=== PATIENT | male | born 1945 | race Caucasian/White ===

== ENCOUNTER 2016-10-09 21:20 | Emergency (ER) | payer MEDICARE, BC ==
[2016-10-09 22:05] LABS: BASOPHILS 0.2 % (0.0-2.0); EOSINOPHILS 1.2 % (0-7); HEMOGLOBIN 13.6 g/dL (13.5-17.5); IMMATURE GRANULOCYTES 0.3 % (0-5); LYMPHOCYTES 4.4 % (15-50); MCH 27.8 pg (26.0-34.0); MCHC 31.6 g/dL (31.0-37.0); MCV 87.9 fL (80.0-100.0); MEAN PLATELET VOLUME 9.8 fL (7.4-10.4); MONOCYTES 11.2 % (2-11); NEUTROPHILS 82.7 % (40-80); PLATELET COUNT 187 10x3/uL (130-400); RBC 4.89 10x6/uL (4.20-6.10); RDW 12.7 % (11.5-14.5); WBC 9.8 10x3/uL (4.8-10.8)
[2016-10-09 22:18] LABS: ALBUMIN 3.7 g/dL (3.4-5.0); ALKALINE PHOSPHATASE 48 U/L (46-116); ALT (SGPT) 19 U/L (10-68); BILIRUBIN - TOTAL 0.26 mg/dL (0.2-1.3); CALC OSMOLALITY 277 mosm/kg (275-300); CALCIUM 9.3 mg/dL (8.5-10.1); CARBON DIOXIDE 29.3 mmol/L (21.0-32.0); CHLORIDE - SERUM 102 mmol/L (98-107); CREATININE - SERUM 0.9 mg/dL (0.6-1.3); GLUCOSE 122 mg/dL (74-106); POTASSIUM - SERUM 4.3 mmol/L (3.5-5.1); PROTEIN - SERUM 7.2 g/dL (6.4-8.2); SODIUM 139 mmol/L (136-145); UREA NITROGEN 9 mg/dL (7-18); eGFR NON AFRICAN AMERICAN 88 mL/min (90-120)
[2016-10-10 01:04] LABS: APPEARANCE CLEAR (CLEAR); BILIRUBIN NEGATIVE (NEGATIVE); COLOR YELLOW (YELLOW); GLUCOSE NEGATIVE (NEGATIVE); KETONE NEGATIVE (NEGATIVE); LEUKOCYTE ESTERASE NEGATIVE (NEGATIVE); NITRITE NEGATIVE (NEGATIVE); PROTEIN TRACE mg/dL (NEGATIVE); SPECIFIC GRAVITY 1.005 (1.005-1.020); UROBILINOGEN NORMAL (NORMAL)
[2016-10-10 01:10] LABS: BACTERIA FEW /hpf (NONE SEEN); EPITHELIAL CELLS RARE /hpf (0-5); HYALINE CAST RARE /lpf (NONE SEEN); WHITE CELLS - URINE OCC /hpf (0-5)
== END 2016-10-10 02:18 | disposition home or self-care (01) ==
LOC: D.ER 21:20
PROVIDERS: Family Medicine
DX: B34.9 Viral infection, unspecified (principal); E11.9 Type 2 diabetes mellitus without complications; I10 Essential (primary) hypertension; F17.200 Nicotine dependence, unspecified, uncomplicated

== ENCOUNTER 2017-03-27 06:02 | Day surgery (SDC) | payer MEDICARE, BC ==
[~2017-03-27] VITALS: Ht 177.8 cm; Wt 94.1 kg
[2017-03-27 06:49] LABS: HEMATOCRIT 48.1 % (42.0-54.0); HEMOGLOBIN 15.2 g/dL (13.5-17.5); MCH 28.4 pg (26.0-34.0); MCHC 31.6 g/dL (31.0-37.0); MCV 89.7 fL (80.0-100.0); MEAN PLATELET VOLUME 10.2 fL (7.4-10.4); RBC 5.36 10x6/uL (4.20-6.10); RDW 13.9 % (11.5-14.5)
[2017-03-27 07:03] LABS: CALC OSMOLALITY 284 mosm/kg (275-300); CALCIUM 9.5 mg/dL (8.5-10.1); CARBON DIOXIDE 32.4 mmol/L (21.0-32.0); CHLORIDE - SERUM 104 mmol/L (98-107); GLUCOSE 101 mg/dL (74-106); POTASSIUM - SERUM 4.1 mmol/L (3.5-5.1); SODIUM 143 mmol/L (136-145); UREA NITROGEN 13 mg/dL (7-18); eGFR NON AFRICAN AMERICAN 78 mL/min (90-120)
[2017-03-27] MEDS ORDERED: ZESTRIL40 MG PO (07:05)
[2017-03-27] MEDS ORDERED: CARDURA1 MG PO (07:06)
[2017-03-27] MEDS ORDERED: ZOFRAN4 MG PO (07:06)
[2017-03-27] MEDS ORDERED: COREG12.5 MG PO (07:06)
[2017-03-27] MEDS ORDERED: ZOCOR80 MG PO (07:07)
[2017-03-27] MEDS ORDERED: GLUCOPHAGE1000 MG PO (07:07)
[2017-03-27] MEDS ORDERED: HYDROCODON-ACE1 EAC9 PO (07:08)
[2017-03-27] MEDS ORDERED: BAYER CHEWABLE81 MG PO (07:08)
[2017-03-27] MEDS ORDERED: NIASPAN1000 MG PO (07:08)
[2017-03-27 07:14] VITALS: BP 138/78; Ht 177.8 cm; Wt 94.1 kg
--- NOTE | 2017-03-28 07:48 | OP ---
PATIENT NAME: DEZ CARL MEDICAL RECORD: [id number] :41 LOCATION:[facility] ADMISSION DATE: SURGEON: FERNANDO HARDEN DO DATE OF OPERATION: 03/27/2017 PROCEDURE: Colonoscopy with polypectomy. INDICATIONS FOR PROCEDURE: Screening colonoscopy and chronic constipation, which the patient states has resolved. SCOPE: Olympus video pediatric colonoscope. MEDICATIONS: Propofol 1200mg IV per anesthesia. WITHDRAWAL TIME: 36 minutes. FINDINGS: Informed consent was given. The patient was made comfortable with the above medication. After reaching an adequate level of sedation by slow IV push, the patient was placed on his left side. A digital rectal examination was performed and revealed some tags consistent with the past external hemorrhoids. The prostate was slightly enlarged, but they were no nodules palpation. The scope was then inserted through the rectum under direct visualization and advanced to the cecum with visualization of the appendiceal orifice and ileocecal valve. The scope was slowly withdrawn and the mucosa was carefully examined. Prep quality was good on the left side of the colon, but poor on the right side. Irrigation and aspiration was performed, but all of the stool could not be removed, making small polyps possibly be missed. In the ascending colon, there was a single polyp which measured approximately 1 cm in size. It was benign appearing and flat. The polyp was lifted using normal saline and a hot snare was placed around the polyp to remove in 1 piece. It was completely retrieved. A single edge was fulgurated using the tip of the snare. For hemostasis and to close the defect, a single endoclip was placed successfully over the site. In the transverse colon, there were 3 separate polyps which were benign-appearing and sessile. They ranged in size from 4-6 mm in diameter. They were all removed using a hot snare in 1 piece and completely retrieved. In the descending colon, there was a single polyp which was small and benign-appearing. It measured approximately 3 mm in size. It was removed using hot forceps in 1 piece and completely retrieved. Retroflexion was performed in the rectum with visualization of small nonbleeding internal hemorrhoids. The scope was then withdrawn from the patient. The patient tolerated the procedure well and there were no complications. IMPRESSION: 1. Multiple polyps as described above, located in the ascending colon, transverse colon, and descending colon. These were removed using various methods including EMR, hot snare, and hot forceps. 2. Small nonbleeding internal hemorrhoids. PLAN AND RECOMMENDATIONS: 1. Discharge home when recovery parameters are met. 2. High fiber diet. 3. Continue current medications. 4. Plan for a repeat colonoscopy in 6 months to 1 year for surveillance of polypectomy sites. OPERATIVE REPORT [id number] DEZ CARL TRANSFABIÁN:[id number] Voice Confirmation ID: [id number] DOCUMENT ID: [id number] FERNANDO HARDEN DO at 0748 CC: [id number] DICTATION DATE: 03/27/17916 [facility]ONE[facility] ROOM TELLER: 03/27/17 1118 [facility] 03/27/17 [facility] [address] [place] [address]
== END 2017-03-27 10:05 | disposition home or self-care (01) ==
LOC: D.OPS 06:02
PROVIDERS: Anesthesiology
DX: Z12.11 Encounter for screening for malignant neoplasm of colon (principal); D12.4 Benign neoplasm of descending colon; D12.3 Benign neoplasm of transverse colon; D12.2 Benign neoplasm of ascending colon; K64.8 Other hemorrhoids; Z01.812 Encounter for preprocedural laboratory examination

== ENCOUNTER 2018-12-08 00:31 | Emergency (ER) | payer MEDICARE, BC ==
[~2018-12-08] VITALS: Ht 177.8 cm; Wt 92.5 kg
[~2018-12-08 00:31] MED LIST: BAYER CHEWABLE81 MG PO; CARDURA1 MG PO; COREG12.5 MG PO; GLUCOPHAGE1000 MG PO; HYDROCODON-ACE1 EAC9 PO; NIASPAN1000 MG PO; ZESTRIL40 MG PO; ZOCOR80 MG PO; ZOFRAN4 MG PO
[2018-12-08 00:36] VITALS: Ht 177.8 cm; Wt 92.5 kg
[2018-12-08] MEDS ORDERED: ERYTHROMYCIN250 M1 PO (00:37)
[2018-12-08] MEDS ORDERED: PREDNISONE (00:37)
[2018-12-08 01:57] LABS: APPEARANCE HAZY (CLEAR); BILIRUBIN NEGATIVE (NEGATIVE); COLOR YELLOW (YELLOW); GLUCOSE NEGATIVE (NEGATIVE); KETONE NEGATIVE (NEGATIVE); NITRITE NEGATIVE (NEGATIVE); PROTEIN NEGATIVE (NEGATIVE); SPECIFIC GRAVITY 1.015 (1.005-1.020); UROBILINOGEN NORMAL (NORMAL)
[2018-12-08 01:58] LABS: BACTERIA NONE SEEN /hpf (NONE SEEN); CALCIUM OXALATE CRYSTALS 0-5 /hpf (NONE SEEN); EPITHELIAL CELLS 0-5 /hpf (0-5); RED CELLS - URINE >50 /hpf (0-5); WHITE CELLS - URINE NSEEN /hpf (0-5)
[2018-12-08 02:35] LABS: BASOPHILS 0.1 % (0-2); EOSINOPHILS 0.1 % (0-7); HEMATOCRIT 43.4 % (42.0-54.0); IMMATURE GRANULOCYTES 0.5 % (0-5); LYMPHOCYTES 9.8 % (15-50); MCH 28.6 pg (26.0-34.0); MCHC 32.3 g/dL (31.0-37.0); MCV 88.6 fL (80.0-100.0); MEAN PLATELET VOLUME 10.4 fL (7.4-10.4); MONOCYTES 13.6 % (2-11); NEUTROPHILS 75.9 % (40-80); PLATELET COUNT 248 10x3/uL (130-400); RDW 12.9 % (11.5-14.5); WBC 13.1 10x3/uL (4.8-10.8)
[2018-12-08 03:05] LABS: ALBUMIN 3.5 g/dL (3.4-5.0); ANION GAP 13.6 mmol/L (8-16); BILIRUBIN - TOTAL 0.31 mg/dL (0.2-1.3); CALCIUM 9.3 mg/dL (8.5-10.1); CREATININE - SERUM 1.2 mg/dL (0.6-1.3); POTASSIUM - SERUM 4.6 mmol/L (3.5-5.1); PROTEIN - SERUM 7.5 g/dL (6.4-8.2)
[2018-12-08 05:47] VITALS: BP 129/72
== END 2018-12-08 05:47 | disposition other institution (70) ==
LOC: D.ER 00:31
PROVIDERS: Family Medicine
DX: R10.9 Unspecified abdominal pain (principal); N13.2 Hydronephrosis with renal and ureteral calculous obstruction; R11.2 Nausea with vomiting, unspecified

== ENCOUNTER 2019-01-03 09:15 | Day surgery (SDC) | payer MEDICARE, BC ==
[2019-01-02 15:42] LABS: HEMATOCRIT 41.4 % (42.0-54.0); HEMOGLOBIN 13.3 g/dL (13.5-17.5); MCH 28.2 pg (26.0-34.0); MCHC 32.1 g/dL (31.0-37.0); MCV 87.7 fL (80.0-100.0); MEAN PLATELET VOLUME 10.5 fL (7.4-10.4); RBC 4.72 10x6/uL (4.20-6.10); RDW 13.6 % (11.5-14.5); WBC 9.8 10x3/uL (4.8-10.8)
[2019-01-02 15:59] LABS: CALC OSMOLALITY 284 mosm/kg (275-300); CALCIUM 9.2 mg/dL (8.5-10.1); CHLORIDE - SERUM 107 mmol/L (98-107); CREATININE - SERUM 0.7 mg/dL (0.6-1.3); GLUCOSE 90 mg/dL (74-106); POTASSIUM - SERUM 4.5 mmol/L (3.5-5.1); SODIUM 143 mmol/L (136-145); UREA NITROGEN 13 mg/dL (7-18); eGFR NON AFRICAN AMERICAN > 90 mL/min (90-120)
[~2019-01-03] VITALS: Ht 177.8 cm; Wt 87.1 kg
[~2019-01-03 09:15] MED LIST changes: +AMBIEN10 MG PO; +CLARITIN 10 MG10 MG PO; +ERYTHROMYCIN250 M1 PO; +FLOMAX0.4 MG PO; +GABAPENTIN100 MG PO; +NITROSTAT0.4 MG SL; +PREDNISONE
[2019-01-03 11:15] VITALS: BP 129/84; Ht 177.8 cm; Wt 87.1 kg
--- NOTE | 2019-01-03 13:29 | NUR ---
PATIENT IV RIGHT LOWER FORARM INFILTRATED WHEN TAPE WAS REMOVED SMALL SKIN TEAR
--- NOTE | 2019-01-03 15:05 | NUR ---
REC'D FROM RR. FAMILY AT BEDSIDE. ICE WATER AND FL TRAY BROUGHT TO PT. VOIDED IN URINAL. BLOOD TINGED URINE NOTED. WARM BLANKET PLACED ON PT.
--- NOTE | 2019-01-03 15:35 | NUR ---
SITTING WITH HOB ELEVATED EATING FL DIET. NO C/O VOICED. FAMILY AT BEDSIDE.
--- NOTE | 2019-01-03 15:55 | NUR ---
IV DC'D WITH CATHETER INTACT.
--- NOTE | 2019-01-03 16:00 | NUR ---
WRITTEN AND VERBAL DC INST. GIVEN TO PT. ALONG WITH FU KUB IN 2 WEEKS. VERBALIZED UNDERSTANDING.
--- NOTE | 2019-01-03 16:01 | OP ---
PATIENT NAME: DEZ CARL MEDICAL RECORD: [id number] :43 [facility] ADMISSION DATE: SURGEON: PENELOPE BLACK MD DATE OF OPERATION: 01/03/2019 SURGEON: Penelope Black MD ANESTHESIA: General anesthesia by Eric Nicolas MD DIAGNOSIS: Left renal stone, 4 mm; left distal ureteral stone, 6 mm. PROCEDURE: Left renal ESWL times 3000 shocks, left distal ureteral ESWL times 2000 shocks. FINDINGS: Radiodense left renal stones about 4 mm, radiodense left distal ureteral stone 6 mm. BLOOD LOSS: None. CLINICAL HISTORY: This is a 73-year-old male, who was referred from the Emergency Room with bilateral kidney stones. He is symptomatic from a left ureteral stone, 6 mm in size as seen on CT scan. There is also a nonobstructive left renal stone and 2 larger nonobstructive right renal stones. The CT scan also suggests a right middle lobe pneumonia and he was coughing at the time. I was away in [place] at the time that he came to the Emergency Room and he was transferred to [facility] in [place]. There they inserted a left ureteral stent. They did not make any attempts to remove the ureteral stone. He comes today to have the stones treated with ESWL on the left side. HE IS ALLERGIC TO ADENOSINE AND MORPHINE. He was given Ancef avionics engineer to the OR. DESCRIPTION OF PROCEDURE: The patient was placed on the treatment table. Initially, we visualized the left-sided stones. The renal and ureteral stones were seen. The patient was then given induction of general anesthesia in supine position. The renal stone on the left side was targeted in 2 planes and 3000 shocks were given to the renal stone. The stone was rather hard and was seen to break up into 3 or 4 smaller pieces after the 3000 shocks. We then turned the patient into the prone position. We had to turn him because the distal ureter where the ureteral stone is located is protected by the sacrum. Once in the prone position, again the stone in the ureter was targeted in 2 planes. After 2000 shocks, the stone had basically vanished as it had completely been fragmented. We stopped at this point. The patient will be seen in followup in 2 weeks' time with a KUB. If the stones in the left side had completely passed, then we will remove the left ureteral stent. At a later date, we will have to arrange for cystoscopy, right ureteral stent insertion, right ESWL. TRANSINT:[id number] Voice Confirmation ID: [id number] DOCUMENT ID: [id number] OPERATIVE REPORT [id number] DEZ CARL ROBERT S MD at 1601 CC: [id number] DICTATION DATE: 01/03/19 142 MANAGER ARCHITECTURAL: 01/03/[address] [facility] [address] [place] [id number]
--- NOTE | 2019-01-03 16:10 | NUR ---
DC'D HOME WITH FAMILY VIA PRIVATE VEHICLE. TAKEN TO VEHICLE VIA WC. STABLE AT TIME OF DC.
== END 2019-01-03 16:10 | disposition home or self-care (01) ==
LOC: D.OPS 09:15 → D.PAN 10:45 → D.OPS 11:15 → D.PAN 11:15 → D.OPS 11:30 → D.PAN 13:00 → D.OPS 16:10
PROVIDERS: Anesthesiology; ATTEND Urology
DX: N20.1 Calculus of ureter (principal); Z01.812 Encounter for preprocedural laboratory examination

== ENCOUNTER → 2019-01-17 10:56 | Outpatient (CLI) | payer MEDICARE, BC ==
[2019-01-03 11:15] VITALS: BMI 27.6
== END | disposition home or self-care (01) ==
LOC: D.RAD 10:56
PROVIDERS: ATTEND Urology
DX: N20.2 Calculus of kidney with calculus of ureter (principal)

== ENCOUNTER → 2019-01-21 19:59 | Outpatient (CLI) | payer MEDICARE, BC ==
[2019-01-03 11:15] VITALS: BMI 27.6
[~2019-01-21 19:59] MED LIST changes: +ALBUTEROL2.5 MG/3 M
[2019-01-25 17:08] LABS: CALCULI - CA OXALATE MONOHYDR 70 % (()); CALCULI - CALCIUM PHOSPHATE 30 % (()); CALCULI - COLOR Tan (()); CALCULI - WEIGHT 345.7 mg (())
== END | disposition home or self-care (01) ==
LOC: D.LABREF 19:59
PROVIDERS: ATTEND Urology
DX: N20.0 Calculus of kidney (principal)

== ENCOUNTER 2019-01-24 08:24 | Day surgery (SDC) | payer MEDICARE, BC ==
[~2019-01-24] VITALS: Ht 177.8 cm; Wt 88.9 kg
[2019-01-24 08:58] LABS: CALC OSMOLALITY 289 mosm/kg (275-300); CALCIUM 9.2 mg/dL (8.5-10.1); CARBON DIOXIDE 28.9 mmol/L (21.0-32.0); CHLORIDE - SERUM 108 mmol/L (98-107); CREATININE - SERUM 0.9 mg/dL (0.6-1.3); GLUCOSE 99 mg/dL (74-106); HEMATOCRIT 40.6 % (42.0-54.0); MCH 28.1 pg (26.0-34.0); MCV 87.9 fL (80.0-100.0); POTASSIUM - SERUM 4.2 mmol/L (3.5-5.1); RBC 4.62 10x6/uL (4.20-6.10); RDW 13.9 % (11.5-14.5); SODIUM 144 mmol/L (136-145); UREA NITROGEN 20 mg/dL (7-18); WBC 6.9 10x3/uL (4.8-10.8); eGFR NON AFRICAN AMERICAN 87 mL/min (90-120)
[2019-01-24 09:16] VITALS: BP 128/65; Ht 177.8 cm; Wt 88.9 kg
--- NOTE | 2019-01-24 15:59 | NUR ---
1600 ADA FL DIET SERVED.
--- NOTE | 2019-01-24 16:00 | OP ---
PATIENT NAME: DEZ CARL MEDICAL RECORD: [id number] :43 LOCATION:[facility] ADMISSION DATE: SURGEON: LACHO BLACK MD DATE OF OPERATION: 01/24/2019 SURGEON: Lacho Black MD ANESTHESIA: General anesthesia by Dr. Eric Nicolas. DIAGNOSES: 1. Retained left ureteral stent. 2. Right renal stones 7 mm each times 2. PROCEDURES: Cystoscopy, left ureteral stent removal, right ureteral stent insertion 6-Central African x 26 cm with string attached, removal of right renal stone fragments, right extracorporeal shockwave lithotripsy times 3000 shocks to the upper right renal stone. FINDINGS: Two right renal radiodense stones about 7 mm each in size. On cystoscopy, he has a tall bladder neck with some lateral lobe obstruction. In the bladder, no bladder tumors were seen and there were single ureteral orifices bilaterally. Once the right ESWL was underway, the 2 stone fragments dropped out of the lower pole of the renal stone and out into the bladder. These were retrieved using grasping forceps. They will be sent for stone analysis. BLOOD LOSS: Minimal. CLINICAL HISTORY: This is a 73-year-old male, who initially presented with left flank pain while I was away at a conference. He was transferred to [facility] and he had a left ureteral stent inserted. He was then treated with lithotripsy and the left ureteral stone has completely gone on the followup KUB. He comes today to have the left ureteral stent removed as no string was attached to the stent placed at [facility]. Also, he has 2 stones in the right kidney about 7 mm each in size. He is to have these treated with lithotripsy. Most likely, we will have to treat one of the stones with lithotripsy and then at a later date to treat the other stone with lithotripsy as is a 3000 shock limit for renal stones. He was given Ancef trail construction worker to the OR. DESCRIPTION OF PROCEDURE: The patient was given IV sedation. We performed fluoroscopy and we could identify the stones quite clearly. He was then given intubation for general anesthetic. The upper stone, which is in the mid kidney was targeted in 2 planes and 3000 shocks were started to be given to the stone. In the meantime, down in the penile region, we prepped and draped the patient and placed in the lithotomy position. A 21-Central African cystoscope with 30-degree lens was used for visualization. Findings are as outlined above. The old left ureteral stent was identified and grasping forceps were used to entirely remove the stents. The right ureteral orifice was then identified. The open-ended ureteral catheter was inserted into the right ureteral orifice. Through the lumen of the open-ended ureteral catheter, a Sensor wire was placed up into the right renal pelvis. This was all being done while the shock wave treatment was being given to the right mid pole stone. The stone was seen to fragment and in very short time we saw the 2 fragments end up in the bladder. Over the wire, we inserted the 6-Central African x 26 cm ureteral stent. Once the stent was in correct position, the wire was withdrawn entirely. The distal end of the stent was OPERATIVE REPORT [id number] DEZ CARL pushed into the bladder using a pusher. The string from the distal end of the stent is maintained. It hangs out of the urethra. It was tied to itself in a knot and cut shorter. The scope was placed back in and the 2 stone fragments were retrieved using grasping forceps. They will be sent for stone analysis. The bladder was then emptied through the scope sheath and the scope was removed. Once all of the shocks were given to the mid pole stone, the treatment was terminated. We will bring him back in 2 weeks' time with a KUB. If at that time, the mid pole stone has gone entirely, then we will focus our attention on treating the lower pole stone with ESWL. TRANSINT:[id number] Voice Confirmation ID: [id number] DOCUMENT ID: [id number] LACHO BLACK MD at 1600 CC: [id number] DICTATION DATE: 01/24/19 1510 ENVIRONMENTAL HEALTH MANAGER: 01/24/19 1543 [facility] [address] [place] [address]
== END 2019-01-24 17:00 | disposition home or self-care (01) ==
LOC: D.OPS 08:24 → D.PAN 10:30 → D.OPS 10:45
PROVIDERS: Anesthesiology; ATTEND Urology
DX: N20.0 Calculus of kidney (principal); Z86.010 Personal history of colon polyps; Z01.812 Encounter for preprocedural laboratory examination

== ENCOUNTER 2019-02-04 00:52 | Inpatient (IN) | payer MEDICARE, BC ==
[2019-02-04] VITALS (7 sets, daily range): BP systolic 90–134; BP diastolic 53–75; Ht 177.8 cm; Wt 92.5 kg
[~2019-02-04] VITALS: Ht 177.8 cm; Wt 92.5 kg
--- NOTE | ~2019-02-04 | EC ---
PATIENT:DEZ CARL DATE OF SERVICE: 02/04/19 SEX: M MEDICAL RECORD: [id number] DATE OF : 41 LOCATION:D.M2 D.213 AGE OF PATIENT: 73 ADMISSION DATE: 02/04/19 REFERRING PHYSICIAN: INTERPRETING PHYSICIAN: ELIZABETH CRISTOBAL MD ECHOCARDIOGRAM REPORT ECHO CHARGES 4 ECHO COMPLETE Date: 02/05/19 CLINICAL DIAGNOSIS: BACTEREMIA - R/O VEGETATION ECHOCARDIOGRAPHIC MEASUREMENTS (adult normal given) AC root (d.<3.7cm) 3.2 cm LV Septum d (<1.2 cm> 1.1 cm Valve Excursion 1.5 cm LV Septum (systole) 1.9 cm Left Atria (s.<4.0cm> 3.8 cm LVPW d(<1.2cm) 1.2 cm RV (d.<2.3cm) 2.5 cm LVPW (sytole) 1.6 cm LV diastole(<5.6CM) 6.4 cm MV E-F(>70mm/sec) cm LV systole 4.5 cm LVOT Diameter 1.6 cm MV exc.(>10mm) cm Est.ejection fraction (50-75%) % DOPPLER: LVIT cm/sec A 100 cm/sec E 67.0 cm/sec LA cm/sec RVSP 19.0 mmHg LVOT 102 cm/sec AOP1/2T m/s Asc. Ao 160 cm/sec RVOT 73.0 cm/sec RA cm/sec PA 93.0 cm/sec AV Gradient Peak 10.3 mmHg AV Mean 6.5 mmHg AV Area 1.1 cm MV Gradient Peak 4.8 mmHg MV Mean 1.7 mmHg MV Area cm COMMENTS: [place]: Marisabel MONTALVOOE Refrigeration Service Technician: 1 Dr. Cristobal TAPE# PACS Pericardial Effusion N DATE OF SERVICE: 02/06/2019 ECHOCARDIOGRAM DATE OF SERVICE: 02/06/2019 FINDINGS: 1. Left ventricular chamber size is dilated. Left ventricular systolic function is lower limits of normal at 45% to 50%. 2. Left atrium, right atrium, and right ventricular chamber sizes are within ECHOCARDIOGRAM REPORT [id number] DEZ CARL normal limits. 3. Valvular structures have normal structure and motion. 4. Doppler interrogation reveals moderate aortic insufficiency, mild mitral regurgitation, mild tricuspid regurgitation, no other valvular insufficiency or stenosis. 5. No evidence of pericardial effusion or left ventricular thrombus. 6. No evidence of vegetative endocarditis. TRANSINT:[id number] Voice Confirmation ID: [id number] DOCUMENT ID: [id number] ELIZABETH CRISTOBAL MD CC: [id number] DICTATION DATE: 02/06/19 105 LOCAL TRUCK DRIVER: 02/06/19 1132 ADM IN [facility] [address] [place] [address]
--- NOTE | 2019-02-04 01:24 | NUR ---
TRAUMA BAND: [id number] PLACED BY EMS
--- NOTE | 2019-02-04 01:31 | NUR ---
PT LEFT ED VIA STRETCHER FOR CT.
[2019-02-04 01:34] LABS: BASOPHILS 0.1 % (0-2); EOSINOPHILS 0 % (0-7); HEMATOCRIT 37.8 % (42.0-54.0); HEMOGLOBIN 12.5 g/dL (13.5-17.5); IMMATURE GRANULOCYTES 0.2 % (0-5); LYMPHOCYTES 6.5 % (15-50); MCH 28.4 pg (26.0-34.0); MCHC 33.1 g/dL (31.0-37.0); MCV 85.9 fL (80.0-100.0); MEAN PLATELET VOLUME 9.8 fL (7.4-10.4); MONOCYTES 7.8 % (2-11); NEUTROPHILS 85.4 % (40-80); RDW 13.9 % (11.5-14.5); WBC 12.8 10x3/uL (4.8-10.8)
[2019-02-04 01:35] LABS: PLATELET COUNT 150 10x3/uL (130-400)
[2019-02-04 01:45] LABS: ALBUMIN 2.4 g/dL (3.4-5.0); ALKALINE PHOSPHATASE 51 U/L (46-116); ALT (SGPT) 42 U/L (10-68); BILIRUBIN - TOTAL 0.49 mg/dL (0.2-1.3); CALC OSMOLALITY 289 mosm/kg (275-300); CALCIUM 8.8 mg/dL (8.5-10.1); CARBON DIOXIDE 25.3 mmol/L (21.0-32.0); CHLORIDE - SERUM 102 mmol/L (98-107); CREATININE - SERUM 1.6 mg/dL (0.6-1.3); GLUCOSE 119 mg/dL (74-106); POTASSIUM - SERUM 4.1 mmol/L (3.5-5.1); PROTEIN - SERUM 6.8 g/dL (6.4-8.2); SODIUM 140 mmol/L (136-145); UREA NITROGEN 41 mg/dL (7-18); eGFR NON AFRICAN AMERICAN 45 mL/min (90-120)
--- NOTE | 2019-02-04 01:46 | NUR ---
PT RETURNED FROM CT VIA STRETCHER.
--- NOTE | 2019-02-04 01:54 | NUR ---
URINE SPECIMEN SENT TO LAB
[2019-02-04 01:58] LABS: CKMB 2.4 U/L (0.0-3.6); TROPONIN-I 0.038 ng/mL (0.000-0.060)
[2019-02-04 01:59] LABS: CREATINE KINASE 1875 UL (21-232)
[2019-02-04 02:07] LABS: APPEARANCE HAZY (CLEAR); COLOR YELLOW (YELLOW)
[2019-02-04 02:08] LABS: BACTERIA MANY /hpf (NONE SEEN); BILIRUBIN NEGATIVE (NEGATIVE); EPITHELIAL CELLS RARE /hpf (0-5); GLUCOSE NEGATIVE (NEGATIVE); KETONE MODERATE mg/dL (NEGATIVE); NITRITE POSITIVE (NEGATIVE); PROTEIN 2+ mg/dL (NEGATIVE); RED CELLS - URINE 0-5 /hpf (0-5); UROBILINOGEN NORMAL (NORMAL); WHITE CELLS - URINE 25-50 /hpf (0-5)
--- NOTE | 2019-02-04 02:44 | NUR ---
PT AND FAMILY UPDATED ON PLAN OF CARE. PT RESTING ON BED, EYES CLOSED. PT WAKES TO VERBAL STIMULI.
--- NOTE | 2019-02-04 04:14 | NUR ---
ADMISSION ASSESSMENT. HISTORY AND HOME MED LIST COMPLETED. PT LETHARGIC, FOLLOWS COMMANDS AND ANSWERS YES/NO QUESTIONS APPROPRIATELY THEN QUICKLY FALLS BACK TO SLEEP. VSS. AFEBRILE. SR PER CM HR 73. O2 2LNC. LUNGS DIMINISHED IN BASES BILAT. BRUISES NOTED TO BILAT ARMS. SKIN TEAR TO UPPER L ARM APPROX 0.5CM IN DIAMETER CLEANED AND COVERED WITH 2X2 AND OPSITE. SCABS X3 NOTED TO R ELBOW, SCABS X4 TO L ELBOW. 4 SCABS TO L KNEE AND 3 SCABS TO R KNEE. SCAB TO 1ST AND 2ND TOE OF R FOOT. IV TO LAC WITH VANC 1GM INFUSING. AT BEDSIDE. SR UP X2, CALL LIGHT WITHIN REACH AND BED ALARM ON.
--- NOTE | 2019-02-04 05:02 | NUR ---
PT RESTING WITH EYES CLOSED. RESP EVEN AND REGULAR. SR UP X2, CALL LIGHT WITHIN REACH AND BED ALARM ON.
--- NOTE | 2019-02-04 06:41 | NUR ---
PT RESTING WITH EYES CLOSED. RESP EVEN AND REGULAR. SR PER CM. AT BEDSIDE.
--- NOTE | 2019-02-04 07:15 | NUR ---
PT RESTING IN BED ALERT AND ORIENTED. NO ACUTE DISTRESS NOTED. FAMILY AT BEDSIDE. DENIES PAIN AT THIS TIME. IV TO LEFT AC WITH NS @ 125ML/HR INFUSING VIA PUMP. SITE WITHOUT REDNESS OR EDEMA. DENIES FURTHER NEEDS AT THIS TIME. CL WITHIN REACH. ENCOURAGED TO CALL WITH NEEDS. CONTINUE POC
--- NOTE | 2019-02-04 11:25 | NUR ---
PT RESTING ON RIGHT SIDE IN BED. C/O OF NAUSEA AND DRY HEAVING. ADMINISTERED ZOFRAN PER MD ORDERS. PT C/O GROIN PAIN RATING /10, AND STATES "I THINK THATS WHY IM SO SICK RIGHT NOW" ADMINISTERED PAIN MED PER MD ORDERS. WILL CONTINUE TO MONITOR FOR LESSENED PAIN AND NAUSEA. CL WITHIN REACH.
[2019-02-04 11:43] LABS: % SATURATION 4 % (15-55); IRON 10 ug/dl (35-150); TOTAL IRON BIND CAPACITY 231 ug/dl (260-445); UNSAT IRON BIND CAPACITY 221 ug/dl (150-375)
--- NOTE | 2019-02-04 12:59 | NUR ---
REFUSED SCD'S PER YAHIR/BIANCA
--- NOTE | 2019-02-04 14:10 | MORECARE ---
CASE MANAGEMENT DISCHARGE SUMMARY PATIENT: DEZ CARL UNIT: [id number] ADM DATE: 02/04/19 AGE: 73 : 43 SEX: M ROOM/BED: D.2136 AUTHOR: KAYODEDOC PHYSICIAN: REFERRING PHYSICIAN: CRIS SALCIDO DO DATE OF SERVICE: 02/04/19 Discharge Plan Patient Name: DEZ CARL Facility[facility]:[place] : 1945 Planned Disposition: Home Anticipated Discharge Date: Discharge Date: Expected LOS: Initial Reviewer: [email or web address] Initial Review Date: 02/04/2019 Generated: 02/04/19 3:10 pm Comments DCP- Discharge Planning Updated by [email or web address]: Adri Overton on 02/04/19 1:[address] Patient Name: DEZ CARL Admission Status: ER Accout number: [id number] Admission Date: 02-04-2019 : 1945 Admission Diagnosis: Attending: CRIS SALCIDO Current LOS: 1 Anticipated DC Date: Planned Disposition: Primary Insurance: MEDICARE A & B Discharge Planning Comments: CM met with patient to complete initial dc planning assessment. CM educated patient on the CM role and verbal consent given by patient to complete assessment. CM verified patient's address, phone number, and emergency contact phone numbers. Patient lives at home with spouse and reports he is independent in his care. At discharge patient plans to return home and feels this is a safe discharge. CM discussed availability of home health, rehab services, and medical equipment. Patient denied known discharge needs at this time.. . CM will continue to follow and will assist as needed with dc plans/needs. Insurance Checker: Adri Overton DCPIA - Discharge Planning Initial Assessment Updated by [email or web address]: Adri Overton on 02/04/19 2:04 pm * Is the patient Alert and Oriented? Yes * How many steps to enter\exit or inside your home? * PCP [facility] * Pharmacy [facility] * Preadmission Environment Home with Family * ADLs Independent * Equipment Oxygen * List name and contact numbers for known caregivers / representatives who currently or will assist patient after discharge: JAYCE [phone] * Verbal permission to speak to the caregivers and representatives has been obtained from the patient. Yes * Additional services required to return to the preadmission environment? No * Can the patient safely return to the preadmission environment? Yes * Has this patient been hospitalized within the prior 30 days at any hospital? No Patient Name: DEZ CARL Page [id number] at 1410 All edits/amendments must be made on the electronic document DICTATION DATE: 02/04/191408 CONSTRUCTION FLAGGER: LA NENA 02/04/191408 RPT#: [id number] DC DATE: STATUS: ADM IN [facility] [address] [place] [address] END OF REPORT
--- NOTE | 2019-02-04 16:46 | NUR ---
CONNIE FROM THE LAB CALLED TO REPORT A CRITICAL LAB RESULT ON THE ANAEROBIC BLOOD CULTURE CAME BACK WITH GRAM NEGATIVE RODS. THE NURSE CHERELLE WAS VERBALLY NOTIFIED.
--- NOTE | 2019-02-04 19:31 | NUR ---
PATIENT LAYING IN BED. NO COMPLAINTS AT THIS TIME. NO DISTRESS NOTED. FAMILY AT BEDSIDE.
[2019-02-05 00:45] VITALS: BP 101/53
[2019-02-05 05:59] LABS: BASOPHILS 0.1 % (0-2); EOSINOPHILS 0.1 % (0-7); HEMATOCRIT 34.1 % (42.0-54.0); HEMOGLOBIN 11.1 g/dL (13.5-17.5); IMMATURE GRANULOCYTES 0.4 % (0-5); MCHC 32.6 g/dL (31.0-37.0); MCV 85.9 fL (80.0-100.0); MONOCYTES 13.3 % (2-11); NEUTROPHILS 82.1 % (40-80); PLATELET COUNT 144 10x3/uL (130-400); RBC 3.97 10x6/uL (4.20-6.10); RDW 14.2 % (11.5-14.5); WBC 9.8 10x3/uL (4.8-10.8)
[2019-02-05 06:18] LABS: CALCIUM 8.2 mg/dL (8.5-10.1); CARBON DIOXIDE 23.9 mmol/L (21.0-32.0); CREATININE - SERUM 1.9 mg/dL (0.6-1.3); POTASSIUM - SERUM 3.9 mmol/L (3.5-5.1)
[2019-02-05 07:45] VITALS: BP 116/49
--- NOTE | 2019-02-05 08:00 | NUR ---
PT RESTING IN BED, SHIFT ASSESSMENT PERFORMED, DENIES ANY NEEDS AT THIS TIME. WILL CONT TO FOLLOW POC
[2019-02-05 10:15] LABS: FOLATE (FOLIC ACID) - SERUM >20.0 ng/mL (>3.0)
[2019-02-05 11:44] VITALS: BP 124/60
--- NOTE | 2019-02-05 12:20 | NUR ---
PT RESTING IN BED, FAMILY AT BEDSIDE. DENIES ANY NEEDS AT THIS TIME, WILL CONT TO FOLLOW POC
--- NOTE | 2019-02-05 18:29 | NUR ---
PIV TO PT LEFT AC INFILTRATED, PIV REMOVED WITH CATHETER TIP INTACT. 20G PIV INSERTED X2 ATTEMPT TO PT RIGHT AC. PT TOLERATED WELL
--- NOTE | 2019-02-05 19:10 | NUR ---
PATIENT LAYING IN BED. NO COMPLAINTS AT THIS TIME. NO DISTRESS NOTED.
[2019-02-05 20:00] VITALS: BP 137/68
[2019-02-06] VITALS: BP 121/69
--- NOTE | 2019-02-06 00:10 | NUR ---
PATIENT LAYING IN BED. EYES CLOSED, CHEST RISING AND FALLING. NO DISTRESS NOTED. FAMILY AT BEDSIDE.
[2019-02-06 04:30] VITALS: BP 123/63
[2019-02-06 06:55] LABS: BASOPHILS 0.1 % (0-2); HEMATOCRIT 35.4 % (42.0-54.0); HEMOGLOBIN 11.5 g/dL (13.5-17.5); IMMATURE GRANULOCYTES 0.3 % (0-5); LYMPHOCYTES 6.3 % (15-50); MCH 27.4 pg (26.0-34.0); MCHC 32.5 g/dL (31.0-37.0); MCV 84.3 fL (80.0-100.0); MEAN PLATELET VOLUME 10.8 fL (7.4-10.4); MONOCYTES 14.5 % (2-11); NEUTROPHILS 77.8 % (40-80); PLATELET COUNT 160 10x3/uL (130-400); RDW 14.3 % (11.5-14.5); WBC 9.7 10x3/uL (4.8-10.8)
[2019-02-06 07:13] LABS: ANION GAP 15.4 mmol/L (8-16); CARBON DIOXIDE 22.1 mmol/L (21.0-32.0); CREATININE - SERUM 1.7 mg/dL (0.6-1.3); POTASSIUM - SERUM 3.5 mmol/L (3.5-5.1)
[2019-02-06 09:17] VITALS: BP 136/62
--- NOTE | 2019-02-06 12:50 | NUR ---
Nutrition follow-up: Diet: ADA consistent CHO PO Intake ~60% average last 5 meals Labs reviewed Wt: 204# No BM charted since admit RDN following.
[2019-02-06 13:34] VITALS: BP 140/70
--- NOTE | 2019-02-06 14:33 | NUR ---
PTS R.AC PIV INFILTRATED. D/C WITH CATHETER TIP FULLY INTACT. NEW 22 GUAGE PIV INSERTED TO R.FA X1 STICK, DRSG CDI AND SWAB CAPS IN USE. FLUIDS GOING @125ML/HR ORDERED. PT SITTING UP ON EDGE OF BED AND STATES IT FEELS GOOD TO BE OOB AND TO AMBULATE WITH THERAPY. PT DENIES ANY CURRENT PAIN OR NEEDS AT THIS TIME. AT BEDSIDE, WILL CPOC.
[2019-02-06 17:36] VITALS: BP 159/70
--- NOTE | 2019-02-06 19:30 | NUR ---
EVENING ROUNDS MADE. PT LAYING IN BED, STATES PAIN IN STOMACH AT A 5/10 ON A 10 POINT PAIN SCALE. INFORMED PT I WOULD GET HIM SOME PAIN MEDS. DENIES FURTHER CONCERNS AT THIS TIME. AT BEDSIDE. NO FURTHER CONCERNS AT THIS TIME. FALL PRECAUTIONS IN PLACE. BED LOWERED AND LOCKED. CL IN REACH. WILL CTM.
[2019-02-06 20:00] VITALS: BP 116/50
--- NOTE | 2019-02-06 21:24 | NUR ---
VITALS STABLE. PT TOOK MEDS WITHOUT DIFFICULTY. NORCO GIVEN FOR PAIN OF A 5/10 IN ABDOMEN. NO FURTHER CONCERNS AT THIS TIME. BED LOWERED AND LOCKED. CL IN REACH. WILL CTM.
[2019-02-07] VITALS: BP 114/69
--- NOTE | 2019-02-07 00:42 | NUR ---
I have reviewed this patient and I concur with the Shift Assessment completed by the Licensed Practical Nurse today this shift.
[2019-02-07 07:24] LABS: BASOPHILS 0.1 % (0-2); EOSINOPHILS 2.7 % (0-7); HEMATOCRIT 31.1 % (42.0-54.0); HEMOGLOBIN 10.1 g/dL (13.5-17.5); LYMPHOCYTES 7.8 % (15-50); MCH 27.3 pg (26.0-34.0); MCHC 32.5 g/dL (31.0-37.0); MCV 84.1 fL (80.0-100.0); MEAN PLATELET VOLUME 10.1 fL (7.4-10.4); MONOCYTES 13.1 % (2-11); NEUTROPHILS 75.3 % (40-80); PLATELET COUNT 195 10x3/uL (130-400); RDW 14.4 % (11.5-14.5); WBC 8.3 10x3/uL (4.8-10.8)
[2019-02-07 07:38] LABS: ANION GAP 13.8 mmol/L (8-16); CARBON DIOXIDE 20.3 mmol/L (21.0-32.0); CREATININE - SERUM 1.3 mg/dL (0.6-1.3); POTASSIUM - SERUM 3.1 mmol/L (3.5-5.1)
--- NOTE | 2019-02-07 07:45 | NUR ---
PT RESTING IN BED, SHIFT ASSESSMENT PERFORMED. DENIES ANY NEEDS AT THIS TIME. WILL CONT TO FOLLOW POC
[2019-02-07 09:20] VITALS: BP 135/64
--- NOTE | 2019-02-07 12:00 | NUR ---
PT SITTING ON SIDE OF BED EATING LUNCH. DENIES ANY NEEDS AT THIS TIME, WILL CONT TO FOLLOW POC
[2019-02-07 13:19] VITALS: BP 135/69
[2019-02-07 17:43] VITALS: BP 155/65
--- NOTE | 2019-02-07 19:24 | NUR ---
EVENING ROUNDS MADE. PT LAYING IN BED RESTING. DENIES PAIN AT THIS TIME. BREATHING EVEN AND UNLABORED. AT BEDSIDE. NO FURTHER CONCERNS AT THIS TIME. BED LOWERED AND LOCKED. CL IN REACH. WILL CTM..
[2019-02-07 20:00] VITALS: BP 138/63
--- NOTE | 2019-02-07 20:50 | NUR ---
VITALS STABLE. PT TOOK MEDS WITHOUT DIFFICULTY. NO FURTHER CONCERNS AT THIS TIME. PT SITTING UP IN CHAIR AT BEDSIDE. WILL CTM.
[2019-02-08] VITALS: BP 141/69
--- NOTE | 2019-02-08 01:46 | NUR ---
I have reviewed this patient and I concur with the Shift Assessment completed by the Licensed Practical Nurse today this shift.
[2019-02-08 04:00] VITALS: BP 130/56
[2019-02-08 05:42] LABS: BASOPHILS 0.3 % (0-2); EOSINOPHILS 3.8 % (0-7); HEMATOCRIT 31.6 % (42.0-54.0); HEMOGLOBIN 10.4 g/dL (13.5-17.5); IMMATURE GRANULOCYTES 2.5 % (0-5); LYMPHOCYTES 12.6 % (15-50); MCH 27.5 pg (26.0-34.0); MCHC 32.9 g/dL (31.0-37.0); MCV 83.6 fL (80.0-100.0); MEAN PLATELET VOLUME 9.8 fL (7.4-10.4); MONOCYTES 13.3 % (2-11); NEUTROPHILS 67.5 % (40-80); RBC 3.78 10x6/uL (4.20-6.10); RDW 14.7 % (11.5-14.5)
[2019-02-08 05:46] LABS: PLATELET COUNT 254 10x3/uL (130-400)
[2019-02-08 06:05] LABS: ANION GAP 14.2 mmol/L (8-16); CALCIUM 8.6 mg/dL (8.5-10.1); CARBON DIOXIDE 20.3 mmol/L (21.0-32.0); CREATININE - SERUM 1.2 mg/dL (0.6-1.3); POTASSIUM - SERUM 3.5 mmol/L (3.5-5.1)
[2019-02-08 07:52] VITALS: BP 154/72
[2019-02-08] MEDS ORDERED: LEVAQUIN750 MG PO (09:40)
--- NOTE | 2019-02-08 10:59 | NUR ---
DISCHARGE INSTRUCTIONS REVIEWED WITH PT AND ALL QUESTIONS ANSWERED. PIV REMOVED WITH CATHETER TIP INTACT. TELEMETRY REMOVED AND GIVEN TO WHOLESALE BUYER. ASSISTED PT TO FRONT OF HOSPITAL VIA WHEELCHAIR WHERE HE LEFT WITH HIS
--- NOTE | 2019-02-08 11:13 | MORECARE ---
CASE MANAGEMENT DISCHARGE SUMMARY PATIENT: DEZ CARL UNIT: [id number] ADM DATE: 02/04/19 AGE: 73 : 41 SEX: M ROOM/BED: D.2136 AUTHOR: KAM HEADLEY PHYSICIAN: REFERRING PHYSICIAN: CRIS SALCIDO DO DATE OF SERVICE: 02/08/19 Discharge Plan Patient Name: DEZ CARL Facility: [facility]:[place] : 1945 Planned Disposition: Home Anticipated Discharge Date: 02/08/19 Discharge Date: 02/08/2019 Expected LOS: 4 Initial Reviewer: [email or web address] Initial Review Date: 02/04/2019 Generated: 02/08/19 12:12 pm Comments DCP- Discharge Planning Updated by [email or web address]: Joshua Ryan on 02/08/19 10:[address] Patient Name: DEZ CARL Encounter No: [id number] : 1945 Primary Insurance: MEDICARE A & B Anticipated DC Date: 02-08-2019 Planned Disposition: Home DCP follow-up note: CM ARRIVED BACK TO MED 2 UNIT AFTER MORNING MEETING. PT HAD DISCHARGED HOME AND CM WAS NOT ABLE TO SERVE IMPORTANT MESSAGE FROM MEDICARE DISCHARGE NOTICE PRIOR TO PT'S DEPARTURE. DES Marie DCP- Discharge Planning Updated by [email or web address]: dAri Overton on 02/04/19 1:[address] Patient Name: DEZ CARL Admission Status: ER Accout number: [id number] Admission Date: 02-04-2019 : 1945 Admission Diagnosis: Attending: CRIS SALCIDO Current LOS: 1 Anticipated DC Date: Planned Disposition: Primary Insurance: MEDICARE A & B Discharge Planning Comments: CM met with patient to complete initial dc planning assessment. CM educated patient on the CM role and verbal consent given by patient to complete assessment. CM verified patient's address, phone number, and emergency contact phone numbers. Patient lives at home with spouse and reports he is independent in his care. At discharge patient plans to return home and feels this is a safe discharge. CM discussed availability of home health, rehab services, and medical equipment. Patient denied known discharge needs at this time.. . CM will continue to follow and will assist as needed with dc plans/needs. Grain Drier: Adridavey Fernandoman DCPIA - Discharge Planning Initial Assessment Updated by [email or web address]: Adri Overton on 02/04/19 2:04 pm * Is the patient Alert and Oriented? Yes * How many steps to enter\exit or inside your home? * PCP [facility] * Pharmacy [facility] * Preadmission Environment Home with Family * ADLs Independent * Equipment Oxygen * List name and contact numbers for known caregivers / representatives who currently or will assist patient after discharge: JAYCE [phone] * Verbal permission to speak to the caregivers and representatives has been obtained from the patient. Yes * Additional services required to return to the preadmission environment? No * Can the patient safely return to the preadmission environment? Yes * Has this patient been hospitalized within the prior 30 days at any hospital? No Last DP export: 02/04/19 1:10 pm Patient Name: DEZ CARL Page [phone] at 1113 All edits/amendments must be made on the electronic document DICTATION DATE: 02/08/191111 PLANS EXAMINER: LA NENA 02/08/19 111 RPT#: [id number] DC DATE:02/08/19 STATUS: DIS IN [facility] [address] [place] [address] END OF REPORT
== END 2019-02-08 11:02 | disposition home or self-care (01) | DRG 872 ==
LOC: D.ER 00:52 → D.M2 02:41
PROVIDERS: Family Medicine; Internal Medicine Nephrology; ADMIT Family Medicine; ATTEND Family Medicine
DX: A41.50 Gram-negative sepsis, unspecified (principal); N12 Tubulo-interstitial nephritis, not specified as acute or chronic; M62.82 Rhabdomyolysis; N17.9 Acute kidney failure, unspecified; J96.11 Chronic respiratory failure with hypoxia; D64.9 Anemia, unspecified; I10 Essential (primary) hypertension; E78.5 Hyperlipidemia, unspecified; I25.10 Atherosclerotic heart disease of native coronary artery without angina pectoris; J44.9 Chronic obstructive pulmonary disease, unspecified; E11.9 Type 2 diabetes mellitus without complications; Z87.891 Personal history of nicotine dependence; I08.1 Rheumatic disorders of both mitral and tricuspid valves; N20.0 Calculus of kidney

== ENCOUNTER → 2019-07-11 10:05 | Outpatient (CLI) | payer MEDICARE, BC ==
[2019-02-04 14:38] VITALS: BMI 29.2
--- NOTE | ~2019-07-11 | OP ---
PATIENT NAME: DEZ CARL MEDICAL RECORD: [id number] :41 LOCATION:D.[facility] ADMISSION DATE: SURGEON: NAYANA VIDAL MD DATE OF OPERATION: 07/11/2019 Adequate 2D, Color Flow, Spectral Doppler, M-mode LVH is present. LV internal dimension is normal. Wall motion is normal. EF is greater than or equal to ____. Aortic valve is tricuspid. No evidence of stenosis by Doppler interrogation. The left atrium is normal. Mitral valve shows no prolapse. Trace MR. Right-sided chambers are grossly normal. Trace TR. TRANSINT:[id number] Voice Confirmation ID: [id number] DOCUMENT ID: [id number] NAYANA VIDAL MD CC: [id number] DICTATION DATE: 07/15/191423 ENGRAVER STEEL PLATE: 07/15/19 1748 DEP CLI 07/11/19 [facility] [address] [place] [address]
[~2019-07-11 10:05] MED LIST changes: +LEVAQUIN750 MG PO
== END | disposition home or self-care (01) ==
LOC: D.HCCECHO 10:00
PROVIDERS: ATTEND Internal Medicine Interventional Cardiology
DX: I25.810 Atherosclerosis of coronary artery bypass graft(s) without angina pectoris (principal)